=== PATIENT | male | born 1960 | race Hispanic/Latino ===

== ENCOUNTER 2017-06-09 06:01 | Day surgery (SDC) | payer OTHER ==
[2017-06-09] MEDS ORDERED: MIDAZOLAM INJ 2 MG/2 ML VIAL ONE (10:25)
[2017-06-09] MEDS ORDERED: PROPARACAINE 0.5% OPHTH SOL 15 ML BTTL ONE (12:18)
[2017-06-09] MEDS ORDERED: TROP 1%/CYCLOPEN 1%/PHENYL 2% DROPS ONE (12:18)
[2017-06-09] MEDS ORDERED: PROPARACAINE 0.5% OPHTH SOL 15 ML BTTL RIGHT_EYE ONE ×3 (12:25→13:08)
[2017-06-09] MEDS ORDERED: TOBRAMYCIN SULF 0.3 % OPHTH OINT 1 APPLIC RIGHT_EYE ONE (12:25)
[2017-06-09] MEDS ORDERED: TROP 1%/CYCLOPEN 1%/PHENYL 2% DROPS OPHTH ONE (12:25)
[2017-06-09] MEDS ORDERED: LIDOCAINE 1% PF 2 ML AMP INJ ONE (13:11)
[2017-06-09] MEDS ORDERED: DEXAMETHASONE 0.1% OPHTH SOL 1 DROP RIGHT_EYE ONE ×3 (13:17→13:26)
[2017-06-09] MEDS ORDERED: BRIMONIDINE 0.2% OPHTH DROPS RIGHT_EYE ONE ×3 (13:18→13:26)
[2017-06-09] MEDS ORDERED: TOBRAMYCIN SULF 0.3 % OPHT SOL 1 DROP RIGHT_EYE ONE ×3 (13:18→13:26)
[2017-06-09 14:20] VITALS: BP 152/92; TEMP 99.1; O2SAT 97
== END 2017-06-09 14:00 | disposition home or self-care (01) ==
LOC: AMB 06:01
PROVIDERS: ATTEND Ophthalmology
DX: H25.11 Age-related nuclear cataract, right eye (principal)
CPT/HCPCS: 66984; J2250

== ENCOUNTER 2017-06-23 06:16 | Day surgery (SDC) | payer OTHER ==
[2017-06-23] MEDS ORDERED: PROPARACAINE 0.5% OPHTH SOL 15 ML BTTL ONE (07:37)
[2017-06-23] MEDS ORDERED: TROP 1%/CYCLOPEN 1%/PHENYL 2% DROPS ONE (07:37)
[2017-06-23] MEDS ORDERED: MIDAZOLAM INJ 2 MG/2 ML VIAL ONE (10:23)
[2017-06-23] MEDS ORDERED: PROPARACAINE 0.5% OPHTH SOL 15 ML BTTL LEFT_EYE ONE (10:28)
[2017-06-23] MEDS ORDERED: LIDOCAINE 1% PF 2 ML AMP INJ ONE (10:34)
[2017-06-23] MEDS ORDERED: DEXAMETHASONE 0.1% OPHTH SOL 1 DROP LEFT_EYE ONE (10:44)
[2017-06-23] MEDS ORDERED: BRIMONIDINE 0.2% OPHTH DROPS LEFT_EYE ONE (10:44)
[2017-06-23] MEDS ORDERED: TOBRAMYCIN SULF 0.3 % OPHT SOL 1 DROP LEFT_EYE ONE (10:44)
[2017-06-23 12:48] VITALS: BP 143/89; TEMP 98.7; O2SAT 98
== END 2017-06-23 11:15 | disposition home or self-care (01) ==
LOC: AMB 06:16
PROVIDERS: ATTEND Ophthalmology
DX: H25.12 Age-related nuclear cataract, left eye (principal)
CPT/HCPCS: 00142; 66984; J2250